=== PATIENT | male | born 1970 | race Caucasian/White ===

== ENCOUNTER → 2021-02-04 | Outpatient (CLI) | payer OTHER | LOC: CT 14:53 | DX: R22.1 Localized swelling, mass and lump, neck (principal) | CPT/HCPCS: 36415; 70491; 82565; Q9967 ==

== ENCOUNTER → 2021-03-09 | Outpatient (CLI) | payer OTHER | LOC: HEART CORB 08:30 | DX: I10 Essential (primary) hypertension (principal); R00.1 Bradycardia, unspecified; R42 Dizziness and giddiness; I08.8 Other rheumatic multiple valve diseases | CPT/HCPCS: 93306 ==